=== PATIENT | female | born 1980 | race Caucasian/White ===

== ENCOUNTER 2016-09-20 07:40 | Outpatient (CLI) | payer MEDICAID ==
[2016-09-20 13:49] LABS: EOSINOPHILS # (AUTO) 0.1 10^3/uL (0.0-0.7); HGB - HEMOGLOBIN 12.3 g/dL (12.0-16.0); MEAN CORPUSCULAR HGB CONC 33.8 g/dL (32.0-36.0); MEAN CORPUSCULAR VOLUME 84.8 fL (81.0-99.0); MEAN PLATELET VOLUME 7.5 fL (7.9-10.8); MONOCYTES # (AUTO) 0.4 10^3/uL (0.0-1.0)
[2016-09-20 13:52] LABS: BASOPHILS % (AUTO) 0.8 %; EOSINOPHILS % (AUTO) 1.9 %; HCT - HEMATOCRIT 36.3 % (37.0-47.0); LYMPHOCYTES # (AUTO) 1.9 10^3/uL (1.5-3.5); MEAN CORPUSCULAR HEMOGLOBIN 28.7 pg (27.0-31.0); MONOCYTES % (AUTO) 6.4 %; NEUTROPHILS # (AUTO) 3.7 10^3/uL (1.5-6.6); NEUTROPHILS % (AUTO) 59.9 %; NUCLEATED RED BLOOD CELLS AUTO 0.1 /100WBC; RED BLOOD COUNT 4.28 10^6/uL (4.20-5.40); RED CELL DISTRIBUTION WIDTH 14.4 % (12.0-15.0); UNCORRECTED WHITE BLOOD COUNT 6.2 x10^3/uL; WHITE BLOOD COUNT 6.2 x10^3/uL (4.8-10.8)
[2016-09-20 14:14] LABS: ALBUMIN/GLOBULIN RATIO 1.3 (1.0-2.2); BILIRUBIN,TOTAL 0.5 mg/dL (0.2-1.0); BUN - BLOOD UREA NITROGEN 12 mg/dL (6-20); CARBON DIOXIDE - CO2 25 mmol/L (21-32); CHLORIDE 105 mmol/L (101-111); CREATININE 0.6 mg/dL (0.4-1.0); GFR - MDRD 112 (>89); GLUCOSE 95 mg/dL (70-100); MAGNESIUM 2.2 mg/dL (1.7-2.8); PHOSPHORUS 3.5 mg/dL (2.5-4.6); POTASSIUM 4.3 mmol/L (3.5-5.0); SODIUM 139 mmol/L (135-145); TOTAL PROTEIN 6.9 g/dL (6.7-8.2)
[2016-09-20 14:28] LABS: FERRITIN 14.8 ng/mL (11.0-306.8)
[2016-09-20 14:29] LABS: PROLACTIN 9.77 ng/mL
[2016-09-20 14:41] LABS: THYROID STIMULATING HORMONE 3.37 uIU/mL (0.34-5.60)
[2016-09-20 14:49] LABS: FOLLICLE STIMULATING HORMONE 4.94 mIU/mL
[2016-09-20 14:50] LABS: LUTEINIZING HORMONE 1.78 mIU/mL
== END 2016-09-20 07:41 | disposition home or self-care (01) ==
LOC: LAB.WCP 07:40
PROVIDERS: ATTEND Physician Assistant Medical
DX: N92.0 Excessive and frequent menstruation with regular cycle (principal)
CPT/HCPCS: 36415; 80053; 82607; 82728; 83001; 83002; 83735; 84100; 84146; 84443; 84702; 85025

== ENCOUNTER 2016-10-01 13:04 | Outpatient (CLI) | payer MEDICAID ==
--- NOTE | 2016-10-01 23:48 | Ultrasound Report ---
EXAM: PELVIC WITH TRANSVAGINAL ULTRASOUND EXAM DATE: 10/01/2016 02:14 PM. CLINICAL HISTORY: MENORRHAGIA. COMPARISON: None. TECHNIQUE: Realtime transabdominal pelvic scan performed to identify the uterus and adnexa and as an overview of other pelvic structures, followed by transvaginal scan to provide greater detail of the u terus and adnexa, with static image documentation. There is limited penetration due to large body hab itus which limits visualization. FINDINGS: Uterus: 10 x 4.9 x 6.8 cm, volume 175 cc. Anteverted position. Normal overall size and echotexture. Masses: None. Endometrium: 7 mm. Normal. Cervix: Unremarkable. Right Ovary: 3.6 x 2.2 x 2.7 cm, volume 10.7 cc. Normal echotexture and blood flow. Left Ovary: Not visualized. Free Fluid: None. Other: Limited visualization. See above. IMPRESSION: No abnormalities are seen. See above. [facility] Referring Provider Line: [phone] SITE ID: [id number]
== END 2016-10-01 13:05 | disposition home or self-care (01) ==
LOC: DI 13:04
PROVIDERS: ATTEND Physician Assistant Medical
DX: N92.0 Excessive and frequent menstruation with regular cycle (principal)
CPT/HCPCS: 76830; 76856

== ENCOUNTER 2017-01-02 08:36 | Outpatient (CLI) | payer MEDICAID ==
[2017-01-02 13:29] LABS: BILIRUBIN,URINE NEGATIVE (NEGATIVE)
[2017-01-02 13:37] LABS: UR CULTURE IF IND NOT INDICATED
== END 2017-01-02 08:37 | disposition home or self-care (01) ==
LOC: LAB.WCP 08:36
PROVIDERS: ATTEND Family Medicine
DX: R35.0 Frequency of micturition (principal)
CPT/HCPCS: 81001; 87086

== ENCOUNTER 2018-07-19 20:43 | Emergency (ER) | payer MEDICAID ==
[2018-07-19 21:12] LABS: BILIRUBIN,URINE NEGATIVE (NEGATIVE); GLUCOSE, URINE (UA) NEGATIVE (NEGATIVE); KETONES,URINE (UA) NEGATIVE (NEGATIVE); LEUKOCYTE ESTERASE, URINE TRACE (NEGATIVE); NITRITE,URINE NEGATIVE (NEGATIVE); OCCULT BLOOD,URINE MODERATE (NEGATIVE); PH,URINE 8.5 PH (5.0-7.5); PROTEIN,URINE NEGATIVE (NEGATIVE); UROBILINOGEN,URINE 0.2 (NORMAL) E.U./dL (NORMAL)
[2018-07-19 21:15] LABS: CLARITY,URINE CLEAR (CLEAR); HCG UR QUAL NEGATIVE
[2018-07-19 21:24] LABS: BACTERIA,URINE Rare /HPF (None Seen); SQUAMOUS EPITHELIAL CELL,UR RARE Squamous (<= Few)
--- NOTE | 2018-07-19 21:50 | ED Physician Documentation ---
PD HPI ABD PAIN - Stated complaint Stated Complaint: HERNANDEZ/FEVER/ABD PX - Chief complaint Chief Complaint: Abd Pain - History obtained from History obtained from: Patient - History of Present Illness Timing - onset: Today Timing - duration: Days (1) Timing - details: Gradual onset (Onset this morning of lower abdominal pain that is persisted to the day associated with some nausea at times. However she is feeling hungry now. She had a couple of loose stool movements but no diarrhea per se. She has not been constipated. The pain is crampy to aching in the lower abdomen midline and right.) Quality: Cramping, Aching Location: RLQ, Suprapubic Radiation: No: Lower back, Left flank, Right flank Improved by: Laying still. No: Eating Worsened by: Palpation. No: Eating, Breathing Associated symptoms: Nausea. No: Fever, Vomiting, Diarrhea, Dysuria Similar symptoms before: Has not had sx before Recently seen: Not recently seen Review of Systems Constitutional: denies: Fever Nose: denies: Rhinorrhea / runny nose, Congestion Throat: denies: Sore throat Respiratory: denies: Cough GI: reports: Abdominal Pain, Nausea. denies: Abdominal Swelling, Vomiting, Constipation, Diarrhea : denies: Dysuria, Frequency, Discharge Neurologic: reports: Generalized weakness. denies: Focal weakness, Numbness, Near syncope, Headache PD PAST MEDICAL HISTORY - Past Medical History Past Medical History: Yes Endocrine/Autoimmune: None GI: None ANIMAL HUSBANDMAN: Ovarian cysts - Past Surgical History Past Surgical History: No - Present Medications Home Medications: Ambulatory Orders Medication Instructions Recorded Confirmed Amox/Clav 875/125 [Augmentin] 1 each PO Q12H #14 tablet 07/20/18 Naproxen 500 mg PO BID #20 tablet 07/20/18 Ondansetron Odt [Zofran] 4 mg TL Q6H PRN #10 tablet 07/20/18 Tramadol HCl 50 mg PO Q6H PRN #15 tablet 07/20/18 - Allergies Allergies/Adverse Reactions: Allergies Allergy/AdvReac Type Severity Reaction Status Date / Time egg AdvReac Intermediate Cramps Verified 07/19/18 20:50 - Social History Does the pt smoke?: No Smoking Status: Never smoker Does the pt drink ETOH?: No Does the pt have substance abuse?: No - Immunizations Immunizations are current?: Yes PD ED PE NORMAL - Vitals Vital signs reviewed: Yes - General General: Alert and oriented X 3, Well developed/nourished - HEENT HEENT: Pharynx benign - Neck Neck: Supple, no meningeal sign, No adenopathy - Cardiac Cardiac: RRR, No murmur - Respiratory Respiratory: Clear bilaterally - Abdomen Abdomen: Soft, No organomegaly, Other (obese, With tenderness in the lower abdomen both midline and right lower quadrant. There is some localized tender ness to deeper palpation. There is no percussion or rebound tenderness. The upper abdomen is nontender.) - Female Female : Deferred - Rectal Rectal: Deferred - Back Back: No CVA TTP - Derm Derm: Normal color, Warm and dry - Extremities Extremities: No tenderness to palpate, Normal ROM s pain, No edema - Neuro Neuro: Alert and oriented X 3, No motor deficit, Normal speech Results - Vitals Vitals: Vital Signs - 24 hr 07/19/18 07/20/18 07/20/18 20:45 00:12 01:43 Temperature 37.8 C H 37.3 C 36.9 C Heart Rate 99 74 81 Respiratory 17 22 18 Rate Blood Pressure 149/91 H 107/65 129/86 H O2 Saturation 97 96 95 Oxygen O2 Source Room air - Labs Labs: Laboratory Tests 07/19/18 07/19/18 07/19/18 20:59 21:53 21:53 WBC 7.9 RBC 4.40 Hgb 13.7 Hct 39.1 MCV 88.9 MCH 31.1 H MCHC 35.0 RDW 12.9 Plt Count 186 MPV 7.4 L Neut # (Auto) 6.3 Lymph # (Auto) 1.1 L [place] # (Auto) 0.4 Eos # (Auto) 0.0 Baso # (Auto) 0.0 Absolute Nucleated RBC 0.00 Nucleated RBC % 0.0 Sodium 138 Potassium 3.8 Chloride 104 Carbon Dioxide 24 Anion Gap 10.0 BUN 9 Creatinine 0.6 Estimated GFR (MDRD) 111 Glucose 94 Calcium 8.8 Total Bilirubin 1.1 H AST 41 ALT 61 H Alkaline Phosphatase 53 Total Protein 7.1 Albumin 3.8 Globulin 3.3 Albumin/Globulin Ratio 1.2 Lipase 25 Urine Color YELLOW Urine Clarity CLEAR Urine pH 8.5 H Ur Specific [place] 1.015 Urine Protein NEGATIVE Urine Glucose (UA) NEGATIVE Urine Ketones NEGATIVE Urine Occult Blood MODERATE H Urine Nitrite NEGATIVE Urine Bilirubin NEGATIVE Urine Urobilinogen 0.2 (NORMAL) Ur Leukocyte Esterase TRACE H Urine RBC 6-10 H Urine WBC 4-5 Ur Squamous Epith Cells RARE Squamous Urine Bacteria Rare Ur Microscopic Review INDICATED Urine Culture Comments INDICATED Urine HCG, Qual NEGATIVE - Rads (name of study) Abdominal and pelvic CT without IV contrast. Radiology: Prelim report reviewed (The appendix is normal. There are no kidney stones. There is some inflammation along the sigmoid area with diverticula suggested diverticulitis.) PD MEDICAL DECISION MAKING - ED course Complexity details: considered differential (Consider appendicitis or urinary tract infection or diverticulitis given the local pain and tenderness in the lower abdomen.), d/w patient Departure - Departure Disposition: 01 Home, Self Care Clinical Impression: Diverticulitis Abdominal pain Qualifiers: Abdominal location: right lower quadrant Qualified Code(s): R10.31 - Right lower quadrant pain Condition: Stable Record reviewed to determine appropriate education?: Yes Instructions: ED Diverticulitis Follow-Up: Holden Moss MD [Primary Care Provider] - Prescriptions: Amox/Clav 875/125 [Augmentin] 1 each PO Q12H #14 tablet Naproxen 500 mg PO BID #20 tablet Ondansetron Odt [Zofran] 4 mg TL Q6H PRN #10 tablet PRN Reason: Nausea / Vomiting Tramadol HCl 50 mg PO Q6H PRN #15 tablet PRN Reason: Pain Comments: Stay well-hydrated. He is anti-inflammatory such as naproxen twice daily for the next 7 to 10 days. Augmentin antibiotic twice daily as directed for the diverticulitis infection. Ondansetron if needed for nausea. Add Tylenol or tramadol if needed for pain. Recheck if not improved over the next 2 to 3 days and return sooner if worsening. Discharge Date/Time: 07/20/18 01:45
[2018-07-19 22:01] LABS: BASOPHILS % (AUTO) 0.6 %; EOSINOPHILS % (AUTO) 0.3 %; HGB - HEMOGLOBIN 13.7 g/dL (12.0-16.0); LYMPHOCYTES # (AUTO) 1.1 10^3/uL (1.5-3.5); LYMPHOCYTES % (AUTO) 13.8 %; MEAN CORPUSCULAR HEMOGLOBIN 31.1 pg (27.0-31.0); MEAN CORPUSCULAR VOLUME 88.9 fL (81.0-99.0); MEAN PLATELET VOLUME 7.4 fL (7.9-10.8); MONOCYTES # (AUTO) 0.4 10^3/uL (0.0-1.0); MONOCYTES % (AUTO) 5.4 %; NEUTROPHILS # (AUTO) 6.3 10^3/uL (1.5-6.6); NEUTROPHILS % (AUTO) 79.9 %; PLT - PLATELET COUNT 186 10^3/uL (130-450); RED CELL DISTRIBUTION WIDTH 12.9 % (12.0-15.0); WHITE BLOOD COUNT 7.9 x10^3/uL (4.8-10.8)
[2018-07-19] MEDS ORDERED: SODIUM CHLORIDE 0.9% 1,000 ML IV ONE (22:11)
[2018-07-19] MEDS ORDERED: KETOROLAC 30 MG/ML VIAL IVP STA (22:11)
[2018-07-19] MEDS ORDERED: MORPHINE 10 MG/ML VIAL IVP STA (22:11)
[2018-07-19 22:12] LABS: ALBUMIN 3.8 g/dL (3.2-5.5); ALBUMIN/GLOBULIN RATIO 1.2 (1.0-2.2); BILIRUBIN,TOTAL 1.1 mg/dL (0.2-1.0); CALCIUM 8.8 mg/dL (8.5-10.3); CREATININE 0.6 mg/dL (0.4-1.0); TOTAL PROTEIN 7.1 g/dL (6.7-8.2)
--- NOTE | 2018-07-20 00:32 | CT Report ---
Reason: abrupt RLQ pain this morning Procedure Date: 07/19/2018 Accession Number: [id number] / [id number] Procedure: CT - Abdomen/Pelvis WO CPT Code: FULL RESULT: EXAM: CT ABDOMEN AND PELVIS (CT KUB) EXAM DATE: 07/19/2018 11:50 PM. CLINICAL HISTORY: Abrupt RLQ pain this morning. COMPARISONS: None. TECHNIQUE: Routine axial helical CT imaging was performed through the abdomen and pelvis without IV contrast. Reconstructions: Coronal and sagittal. In accordance with CT protocol optimization, one or more of the following dose reduction techniques were utilized for this exam: automated exposure control, adjustment of mA and/or KV based on patient size, or use of iterative reconstructive technique. FINDINGS: Lung Bases: Unremarkable. Right Kidney/Ureter: No stones, hydronephrosis, or hydroureter. No perinephric fat stranding. Left Kidney/Ureter: No stones, hydronephrosis, or hydroureter. No perinephric fat stranding. Other Solid Organs: Noncontrast images of the solid organs are grossly unremarkable. Gallbladder/Bile Ducts: Cholelithiasis. No evident biliary dilatation. Peritoneal Cavity: Mild inflammation around the sigmoid colon, with multiple diverticula present, compatible with uncomplicated diverticulitis. Normal appendix. Pelvic Organs: No bladder stones or wall thickening. Noncontrast images of the visualized pelvic organs are unremarkable. Vasculature: Unremarkable. Other: None. IMPRESSION: Inflammation around the sigmoid colon, with multiple diverticula present, compatible with uncomplicated diverticulitis. Normal appendix. No evidence of nephrolithiasis or hydronephrosis. Cholelithiasis. [facility]
[2018-07-20] MEDS ORDERED: cefTRIAXone 1 GM VIAL IVP STA (01:03)
[2018-07-20] MEDS ORDERED: DEXAMETHASONE 10 MG/ML VIAL IVP STA (01:03)
[2018-07-20] MEDS ORDERED: KETOROLAC 15 MG/ML VIAL IVP STA (01:22)
[2018-07-20 01:44] VITALS: BP 129/86
== END 2018-07-20 01:45 | disposition home or self-care (01) ==
LOC: ED 20:43
DX: K57.32 Diverticulitis of large intestine without perforation or abscess without bleeding (principal)
CPT/HCPCS: 36415; 74176; 80053; 81001; 81003; 81025; 83690; 85025; 87086; 96361; 96374; 96375; 96376; 99283; 99284

== ENCOUNTER 2019-02-10 10:35 | Emergency (ER) | payer MEDICAID ==
[2019-02-10 11:51] LABS: BILIRUBIN,URINE NEGATIVE (NEGATIVE); GLUCOSE, URINE (UA) NEGATIVE (NEGATIVE); KETONES,URINE (UA) NEGATIVE (NEGATIVE); LEUKOCYTE ESTERASE, URINE TRACE (NEGATIVE); NITRITE,URINE NEGATIVE (NEGATIVE); OCCULT BLOOD,URINE LARGE (NEGATIVE); PH,URINE 5.5 PH (5.0-7.5); PROTEIN,URINE NEGATIVE (NEGATIVE); UROBILINOGEN,URINE 0.2 (NORMAL) E.U./dL (NORMAL)
[2019-02-10 11:54] LABS: CLARITY,URINE SL. CLOUDY (CLEAR)
[2019-02-10 12:16] LABS: BACTERIA,URINE Rare /HPF (None Seen); SQUAMOUS EPITHELIAL CELL,UR RARE Squamous (<= Few)
--- NOTE | 2019-02-10 12:27 | ED Physician Documentation ---
PD HPI FEMALE - Stated complaint Stated Complaint: FEMALE ABD PX - Chief complaint Chief Complaint: Abd Pain - History obtained from History obtained from: Patient - History of Present Illness Timing - onset: Today Timing - duration: Minutes Timing - details: Abrupt onset Pain level max: 10 Associated symptoms: Abdominal pain, Vaginal bleeding. No: Fever, Back pain, Dysuria, Hematuria Contributing factors: No: control Recently seen: Not recently seen - Additional information Additional information: This is a 39-year-old woman who presents with her mother complaints that she woke up around 7 AM and slid off the bed on her stomach because she is on her menstrual cycle and tends to bleed heavy she did not want to get blood on the bed. She is walking to the bathroom she had an excruciating pain with sudden onset in her lower abdomen. She could not tell if it was on one side or the other but now it seems to be mostly on her side. She got to the bathroom and urinated and then went and laid down on the couch and said the pain was so severe for 4 minutes she just laid there moaning. 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 She did not take any medications for it. She does have a history of significant cramping with her menses and passing clots. She is currently on her menstrual cycle and said that the bleeding is may be moderate. She is been diagnosed with polycystic ovarian syndrome but has had a ultrasound that did not confirm the presence of ovarian cysts. She just never had cramping this severely with her menstrual cycle in the past. She did not feel dizzy. She was a little bit nauseous but had no vomiting or diarrhea. She denies fever but has been very chilled this morning. No history of dysuria. She cannot tell if there is blood in the urine because she is having so much vaginal bleeding. She does not have a history of kidney stones and is never had any prior abdominal surgeries. Patient was seen here in the emergency department in July 2018 and diagnosed with diverticulitis that was treated with antibiotics. She also has a history of cardiac palpitations and has worn a 24-hour Holter monitor but was not given any official diagnosis of an arrhythmia. She denies any recent cough stuffy nose or sore throat. She does have a sore inside of her nostril currently. She relates that to the fact that the dry ear is so dry recently with when her setting in. The patient is a professional nanny. Review of Systems Constitutional: reports: Chills. denies: Fever Ears: denies: Ear pain Nose: denies: Congestion Throat: denies: Sore throat Cardiac: reports: Palpitations Respiratory: denies: Dyspnea, Cough GI: reports: Abdominal Pain, Nausea. denies: Vomiting, Diarrhea : reports: Irregular menses, Missed period. denies: Dysuria, Control Skin: denies: Rash Musculoskeletal: denies: Neck pain, Back pain Neurologic: denies: Generalized weakness, Focal weakness, Near syncope, Syncope PD PAST MEDICAL HISTORY - Past Medical History Endocrine/Autoimmune: None GI: None HIGH SCHOOL MUSIC DIRECTOR: Ovarian cysts - Past Surgical History Past Surgical History: No - Present Medications Home Medications: Ambulatory Orders Medication Instructions Recorded Confirmed Ferrous Gluconate [Iron] 240 mg PO 02/10/19 02/10/19 - Allergies Allergies/Adverse Reactions: Allergies Allergy/AdvReac Type Severity Reaction Status Date / Time egg AdvReac Intermediate Cramps Verified 02/10/19 10:44 - Social History Does the pt smoke?: No Smoking Status: Never smoker Does the pt drink ETOH?: No Does the pt have substance abuse?: No - Immunizations Immunizations are current?: Yes PD ED PE NORMAL - Vitals Vital signs reviewed: Yes - General General: Alert and oriented X 3, No acute distress, Well developed/nourished, Other (Pleasant, obese 39-year-old woman in no acute distress.) - HEENT HEENT: Atraumatic, PERRL, Moist mucous membranes, Pharynx benign - Neck Neck: Supple, no meningeal sign, No adenopathy, Thyroid normal - Cardiac Cardiac: RRR, No murmur, Strong equal pulses - Respiratory Respiratory: No respiratory distress, Clear bilaterally - Abdomen Abdomen: Normal bowel sounds, Soft, Non tender, Non distended, Other (The exam is limited by the body habitus.) - Derm Derm: Normal color, Warm and dry, No rash - Neuro Neuro: Alert and oriented X 3, 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, No motor deficit, No sensory deficit, Normal speech - Psych Psych: Normal mood, Normal affect Results - Vitals Vitals: Vital Signs - 24 hr 02/10/19 02/10/19 02/10/19 10:42 13:06 15:48 Temperature 37.5 C 37.8 C H 37.0 C Heart Rate 112 H 110 H 99 Respiratory 22 17 17 Rate Blood Pressure 146/70 H 144/93 H 140/93 H O2 Saturation 100 99 100 Oxygen O2 Source Room air - Labs Labs: Laboratory Tests 02/10/19 02/10/19 02/10/19 11:20 12:52 12:52 WBC 13.1 H RBC 4.89 Hgb 15.0 Hct 43.7 MCV 89.4 MCH 30.7 MCHC 34.3 RDW 12.7 Plt Count 194 MPV 9.5 Neut # (Auto) 11.5 H Lymph # (Auto) 0.8 L [place] # (Auto) 0.7 Eos # (Auto) 0.0 Baso # (Auto) 0.1 Absolute Nucleated RBC 0.00 Nucleated RBC % 0.0 Sodium 135 Potassium 3.9 Chloride 103 Carbon Dioxide 23 Anion Gap 9.0 BUN 12 Creatinine 0.6 Estimated GFR (MDRD) 111 Glucose 121 H Calcium 8.8 Total Bilirubin 0.9 AST 27 ALT 34 Alkaline Phosphatase 47 Total Protein 7.5 Albumin 4.3 Globulin 3.2 Albumin/Globulin Ratio 1.3 Lipase 45 Urine Color YELLOW Urine Clarity SL. CLOUDY Urine pH 5.5 Ur Specific [place] 1.020 Urine Protein NEGATIVE Urine Glucose (UA) NEGATIVE Urine Ketones NEGATIVE Urine Occult Blood LARGE H Urine Nitrite NEGATIVE Urine Bilirubin NEGATIVE Urine Urobilinogen 0.2 (NORMAL) Ur Leukocyte Esterase TRACE H Urine RBC 11-25 H Urine WBC 0-3 Ur Squamous Epith Cells RARE Squamous Urine Bacteria Rare Ur Microscopic Review INDICATED Urine Culture Comments INDICATED Urine HCG, Qual 02/10/19 02/10/19 13:40 13:40 WBC RBC Hgb Hct MCV MCH MCHC RDW Plt Count MPV Neut # (Auto) Lymph # (Auto) [place] # (Auto) Eos # (Auto) Baso # (Auto) Absolute Nucleated RBC Nucleated RBC % Sodium Potassium Chloride Carbon Dioxide Anion Gap BUN Creatinine Estimated GFR (MDRD) Glucose Calcium Total Bilirubin AST ALT Alkaline Phosphatase Total Protein Albumin Globulin Albumin/Globulin Ratio Lipase Urine Color YELLOW Urine Clarity HAZY Urine pH 5.5 Ur Specific [place] 1.025 1.025 Urine Protein NEGATIVE Urine Glucose (UA) NEGATIVE Urine Ketones NEGATIVE Urine Occult Blood LARGE H Urine Nitrite NEGATIVE Urine Bilirubin NEGATIVE Urine Urobilinogen 0.2 (NORMAL) Ur Leukocyte Esterase NEGATIVE Urine RBC TNTC H Urine WBC 4-5 Ur Squamous Epith Cells FEW Squamous Urine Bacteria Rare Ur Microscopic Review INDICATED Urine Culture Comments NOT INDICATED Urine HCG, Qual NEGATIVE - Rads (name of study) CT abd/pelvis Radiology: See rad report (R adnexal mass, prob ovarian cyst. No kidney stone or appendicitis) U/S pelvis Radiology: See rad report (R ovarian cyst w/o torsion) PD MEDICAL DECISION MAKING - ED course Complexity details: reviewed results, d/w patient, d/w family ED course: Patient's urinalysis did have some blood in it but there is positive leukocytes and greater than 10 white blood cells per high-power field. Labs are still pending. Nursing staff told me that her temp was up to 100.1. The patient had declined anything for pain at this time. She is given a liter of fluids. 1615: The patient's white blood cell count was mildly elevated at 13,000. Her repeat urine had too numerous to count red blood cells but only a couple of white blood cells per high-power field. BUN and creatinine are normal. I did order a CT abdomen pelvis to rule out kidney stone. No evidence of kidney stone on the CT but there was noted to be an adnexal mass which is presumably an ovarian cyst. Given the abrupt onset of her pain and the severity of it with this large mass I have ordered an ultrasound to rule out ovarian torsion. She continues to decline anything for pain. Departure - Departure Disposition: 01 Home, Self Care Clinical Impression: Pelvic pain Cyst of ovary Qualifiers: Laterality: right Qualified Code(s): N83.201 - Unspecified ovarian cyst, right side Condition: Good Instructions: ED Pelvic Pain [facility] Follow-Up: Holden Moss DO [Primary Care Provider] - Comments: They did do a culture on the urine so someone will contact you and start you on antibiotics if it grows out any bacteria. Take Tylenol or ibuprofen if needed for the pain. Make sure you are drinking plenty of water. Follow-up with your primary care provider if you have persistent discomfort or return to the emergency department if the pain increases and becomes severe again and is not letting up with Tylenol and ibuprofen, you have a fever or are vomiting and cannot keep anything down.
[2019-02-10 13:04] LABS: BASOPHILS # (AUTO) 0.1 10^3/uL (0.0-0.1); BASOPHILS % (AUTO) 0.5 %; EOSINOPHILS % (AUTO) 0.2 %; LYMPHOCYTES # (AUTO) 0.8 10^3/uL (1.5-3.5); LYMPHOCYTES % (AUTO) 5.9 %; MEAN CORPUSCULAR HEMOGLOBIN 30.7 pg (27.0-31.0); MEAN CORPUSCULAR HGB CONC 34.3 g/dL (32.0-36.0); MEAN CORPUSCULAR VOLUME 89.4 fL (81.0-99.0); MEAN PLATELET VOLUME 9.5 fL (7.9-10.8); MONOCYTES # (AUTO) 0.7 10^3/uL (0.0-1.0); MONOCYTES % (AUTO) 5.1 %; NEUTROPHILS # (AUTO) 11.5 10^3/uL (1.5-6.6); NEUTROPHILS % (AUTO) 87.8 %; PLT - PLATELET COUNT 194 10^3/uL (130-450); RED BLOOD COUNT 4.89 10^6/uL (4.20-5.40); RED CELL DISTRIBUTION WIDTH 12.7 % (12.0-15.0); WHITE BLOOD COUNT 13.1 x10^3/uL (4.8-10.8)
[2019-02-10] MEDS ORDERED: SODIUM CHLORIDE 0.9% 1,000 ML IV ONE (13:05)
[2019-02-10 13:20] LABS: ALBUMIN 4.3 g/dL (3.2-5.5); ALBUMIN/GLOBULIN RATIO 1.3 (1.0-2.2); BILIRUBIN,TOTAL 0.9 mg/dL (0.2-1.0); CALCIUM 8.8 mg/dL (8.5-10.3); CREATININE 0.6 mg/dL (0.4-1.0); TOTAL PROTEIN 7.5 g/dL (6.7-8.2)
[2019-02-10 13:55] LABS: BILIRUBIN,URINE NEGATIVE (NEGATIVE); GLUCOSE, URINE (UA) NEGATIVE (NEGATIVE); KETONES,URINE (UA) NEGATIVE (NEGATIVE); LEUKOCYTE ESTERASE, URINE NEGATIVE (NEGATIVE); NITRITE,URINE NEGATIVE (NEGATIVE); OCCULT BLOOD,URINE LARGE (NEGATIVE); PH,URINE 5.5 PH (5.0-7.5); PROTEIN,URINE NEGATIVE (NEGATIVE); UROBILINOGEN,URINE 0.2 (NORMAL) E.U./dL (NORMAL)
[2019-02-10 14:01] LABS: BACTERIA,URINE Rare /HPF (None Seen); CLARITY,URINE HAZY (CLEAR); RBC,URINE TNTC /HPF (0-5); SQUAMOUS EPITHELIAL CELL,UR FEW Squamous (<= Few)
[2019-02-10 14:02] LABS: HCG UR QUAL NEGATIVE
--- NOTE | 2019-02-10 15:39 | CT Report ---
Reason: abdominal pain; hematuria Procedure Date: 02/10/2019 Accession Number: [id number] / [id number] Procedure: CT - Abdomen/Pelvis WO CPT Code: Final Report FULL RESULT: EXAM: CT ABDOMEN AND PELVIS (CT KUB) EXAM DATE: 02/10/2019 03:11 PM. CLINICAL HISTORY: Abdominal pain; hematuria. COMPARISONS: ABDOMEN/PELVIS W/O 07/19/2018 11:41 PM. TECHNIQUE: Routine axial helical CT imaging was performed through the abdomen and pelvis without IV contrast. Reconstructions: Coronal and sagittal. In accordance with CT protocol optimization, one or more of the following dose reduction techniques were utilized for this exam: automated exposure control, adjustment of mA and/or KV based on patient size, or use of iterative reconstructive technique. FINDINGS: Lung Bases: Unremarkable. Right Kidney/Ureter: No stones, hydronephrosis, or hydroureter. No perinephric fat stranding. Left Kidney/Ureter: No stones, hydronephrosis, or hydroureter. No perinephric fat stranding. Other Solid Organs: Noncontrast images of the solid organs are grossly unremarkable. Gallbladder/Bile Ducts: Calcified gallstone noted Peritoneal Cavity: No free fluid, free air or josie adenopathy. Bowel is grossly unremarkable. Normal appendix noted. Pelvic Organs: 4.4 cm hypodense -isodense lesion in the right adnexa with attenuation of 60 HU. Differentials include a hemorrhagic cyst versus endometrioma. Further evaluation is recommended on pelvic ultrasound. No bladder stones or wall thickening. Noncontrast images of the visualized pelvic organs are unremarkable. Vasculature: Unremarkable. Other: None. IMPRESSION: No urinary tract stones or obstruction. A calcified gallstone noted/cholelithiasis. A 4.4 cm hypo-isodense lesion in the right adnexa with attenuation of 60 HU. Differentials include hemorrhagic cyst versus endometrioma. [facility]
--- NOTE | 2019-02-10 17:39 | Ultrasound Report ---
Reason: Pain RLQ Procedure Date: 02/10/2019 Accession Number: [id number] / [id number] Procedure: US - Pelvic w/Transvag+Doppler Comp CPT Code: Final Report FULL RESULT: EXAM: PELVIC ULTRASOUND WITH DOPPLERS CLINICAL HISTORY: Pain RLQ. COMPARISON: 10/06/2016 TECHNIQUE: Realtime transabdominal imaging performed to identify the uterus and adnexa and as an overview of other pelvic structures, followed by transvaginal imaging for better assessment of the endometrium and adnexa, with static image documentation. Color flow imaging and Doppler spectral analysis was performed to evaluate blood flow to the ovaries given pelvic pain and clinical concern for ovarian torsion. FINDINGS: Uterus: 8.8 x 5.2 x 5.9 cm, volume 141.2 cc. Anteverted position. Normal overall size and echotexture. Masses: None. Endometrium: 5 mm. No focal endometrial abnormalities. Cervix: Unremarkable. Right Ovary: 6.5 x 4.9 x 5.4 cm, volume 89.7 cc. Normal echotexture. Arterial and venous blood flow are present. PSV 6.4 cm/sec. RI 0.7. 4.5 x 2.9 x 4.6 cm simple appearing cyst without septations or internal complexity. Adnexa are unremarkable. Left Ovary: 2.0 x 1.9 x 1.5 cm, volume 3 cc. Normal echotexture. Arterial and venous blood flow are present. PSV 2.9 cm/sec. RI 0.5. Adnexa are unremarkable. Free Fluid: None. Other: None. IMPRESSION: No acute sonographic abnormality. No evidence for ovarian torsion. 4.6 cm right ovarian cyst. [facility]
[2019-02-10] MEDS ORDERED: KETOROLAC 30 MG/ML VIAL IVP STA (17:49)
[2019-02-10 18:08] VITALS: BP 145/72
== END 2019-02-10 18:04 | disposition home or self-care (01) ==
LOC: ED 10:35
DX: R10.2 Pelvic and perineal pain (principal); N83.201 Unspecified ovarian cyst, right side; N92.6 Irregular menstruation, unspecified
CPT/HCPCS: 36415; 74176; 76830; 76856; 80053; 81001; 81003; 81025; 83690; 85025; 87086; 93975; 96361; 96374; 99284

== ENCOUNTER 2019-03-22 15:17 | Outpatient (CLI) | payer MEDICAID ==
--- NOTE | 2019-03-22 23:16 | Ultrasound Report ---
Reason: OVARIAN CYST RT SIDE Procedure Date: 03/22/2019 Accession Number: [id number] / [id number] Procedure: US - Pelvic w/Transvaginal CPT Code: Final Report FULL RESULT: EXAM: PELVIC ULTRASOUND EXAM DATE: 03/22/2019 05:12 PM. CLINICAL HISTORY: OVARIAN CYST RT SIDE. COMPARISON: PELVIC W/TRANSVAGINAL 10/01/2016 1:06 PM PEL NON OB W/TV DOP 02/10/2019 4:38 PM. TECHNIQUE: Realtime transabdominal pelvic scan performed to identify the uterus and adnexa and as an overview of other pelvic structures, followed by transvaginal scan to provide greater detail of the uterus and adnexa, with static image documentation. FINDINGS: Uterus: 8.7 x 4.5 x 5.4 cm, volume 110 cc. Anteverted position. Normal overall size and echotexture. Masses: None. Endometrium: 7 mm. Normal. Cervix: Nabothian cysts. Right Ovary: 3 x 2.1 x 3 cm, volume 9.8 cc. Normal echotexture and blood flow. Simple right ovarian cyst measuring 0.9 x 0.9 x 1.1 cm. Left Ovary: 2.3 x 1.3 x 1.4 cm, volume 2.2 cc. Normal echotexture and blood flow. Free Fluid: None. Other: None. IMPRESSION: 1. No acute finding sonographically including no evidence of ovarian torsion. 2. Simple right ovarian cyst measuring 0.9 x 0.9 x 1.1 cm. Previously visualized right ovarian cyst on 02/10/2019 measured 4.5 x 2.9 x 4.6 cm. [facility]
== END 2019-03-22 15:18 | disposition home or self-care (01) ==
LOC: DI 15:17
PROVIDERS: ATTEND Obstetrics & Gynecology
DX: N83.291 Other ovarian cyst, right side (principal)
CPT/HCPCS: 76830; 76856

== ENCOUNTER 2019-03-28 09:46 | Outpatient (CLI) | payer MEDICAID ==
[2019-03-28 10:58] LABS: ALBUMIN 4.1 g/dL (3.2-5.5); ALBUMIN/GLOBULIN RATIO 1.2 (1.0-2.2); ALKALINE PHOSPHATASE 42 IU/L (42-121); ALT ALANINE AMINOTRANSFERASE 39 IU/L (10-60); AST ASPARTATE AMINOTRANSFERASE 25 IU/L (10-42); BILIRUBIN,TOTAL 0.8 mg/dL (0.2-1.0); BUN - BLOOD UREA NITROGEN 12 mg/dL (6-20); CARBON DIOXIDE - CO2 26 mmol/L (21-32); CHLORIDE 105 mmol/L (101-111); CHOLESTEROL 224 mg/dL; CREATININE 0.7 mg/dL (0.4-1.0); GFR - MDRD 93 (>89); GLUCOSE 94 mg/dL (70-100); HDL CHOLESTEROL 45 mg/dL; LDL CHOLESTEROL,CALCULATED 147 mg/dL; LDL/HDL RATIO 3.3 (<4.4); SODIUM 141 mmol/L (135-145); TOTAL PROTEIN 7.4 g/dL (6.7-8.2); VLDL CHOLESTEROL 32 mg/dL
[2019-03-28 11:37] LABS: PROLACTIN 5.7 ng/mL
[2019-03-29 10:39] LABS: ESTRADIOL 40 pg/mL
[2019-04-01 15:34] LABS: DHEA SULFATE 84 mcg/dL (23-266)
== END 2019-03-28 09:47 | disposition home or self-care (01) ==
LOC: LAB 09:46
PROVIDERS: ATTEND Obstetrics & Gynecology
DX: Z00.00 Encounter for general adult medical examination without abnormal findings (principal); Z13.220 Encounter for screening for lipoid disorders; N92.6 Irregular menstruation, unspecified; E28.2 Polycystic ovarian syndrome; Z13.1 Encounter for screening for diabetes mellitus
CPT/HCPCS: 36415; 80053; 80061; 81599; 82627; 82670; 82951; 83498; 83721; 84146; 84403; 84443

== ENCOUNTER 2020-01-04 12:14 | Outpatient (CLI) | payer MEDICAID ==
[2020-01-04 13:05] LABS: THYROID STIMULATING HORMONE 2.92 uIU/mL (0.34-5.60)
[2020-01-04 13:07] LABS: FREE T3 3.29 pg/mL (2.5-3.9); FREE T4 (FREE THYROXINE) 0.83 ng/dL (0.58-1.64)
== END 2020-01-04 12:15 | disposition home or self-care (01) ==
LOC: LAB 12:14
PROVIDERS: ATTEND Obstetrics & Gynecology
DX: E28.2 Polycystic ovarian syndrome (principal); N92.6 Irregular menstruation, unspecified; E07.9 Disorder of thyroid, unspecified
CPT/HCPCS: 36415; 84439; 84443; 84481

== ENCOUNTER 2020-06-28 11:52 | Emergency (ER) | payer MEDICAID ==
--- OUTSIDE RECORDS SUMMARY | 2020-06-28 12:24 | EXTERNAL MEDICAL SUMMARY RPT | Continuity of Care Document ---
:1980 Demographics Phone Unavailable Preferred Language Unknown Marital Status Unknown Latter-Day Affiliation Unknown Race Unknown Ethnic Group Unknown Author Organization [facility] Address [address] [phone] Phone Social History date description facility [id number]
[2020-06-28 12:28] LABS: BASOPHILS % (AUTO) 0.5 %; EOSINOPHILS # (AUTO) 0.1 10^3/uL (0.0-0.7); EOSINOPHILS % (AUTO) 1.7 %; HCT - HEMATOCRIT 40.8 % (37.0-47.0); LYMPHOCYTES # (AUTO) 1.6 10^3/uL (1.5-3.5); LYMPHOCYTES % (AUTO) 26.4 %; MEAN CORPUSCULAR HEMOGLOBIN 31.3 pg (27.0-31.0); MEAN CORPUSCULAR HGB CONC 34.3 g/dL (32.0-36.0); MEAN CORPUSCULAR VOLUME 91.1 fL (81.0-99.0); MEAN PLATELET VOLUME 9.1 fL (7.9-10.8); MONOCYTES # (AUTO) 0.3 10^3/uL (0.0-1.0); MONOCYTES % (AUTO) 5.8 %; NEUTROPHILS # (AUTO) 3.8 10^3/uL (1.5-6.6); NEUTROPHILS % (AUTO) 65.1 %; PLT - PLATELET COUNT 212 10^3/uL (130-450); RED BLOOD COUNT 4.48 10^6/uL (4.20-5.40); RED CELL DISTRIBUTION WIDTH 12.6 % (12.0-15.0); WHITE BLOOD COUNT 5.9 x10^3/uL (4.8-10.8)
[2020-06-28 12:41] LABS: BILIRUBIN,URINE NEGATIVE (NEGATIVE); GLUCOSE, URINE (UA) NEGATIVE (NEGATIVE); KETONES,URINE (UA) NEGATIVE (NEGATIVE); LEUKOCYTE ESTERASE, URINE TRACE (NEGATIVE); NITRITE,URINE NEGATIVE (NEGATIVE); OCCULT BLOOD,URINE MODERATE (NEGATIVE); PH,URINE 5.5 PH (5.0-7.5); PROTEIN,URINE NEGATIVE (NEGATIVE); UROBILINOGEN,URINE 0.2 (NORMAL) E.U./dL (NORMAL)
[2020-06-28 12:44] LABS: CLARITY,URINE SL. CLOUDY (CLEAR)
[2020-06-28 12:45] LABS: HCG UR QUAL NEGATIVE
[2020-06-28 12:45] LABS: ALBUMIN/GLOBULIN RATIO 1.3 (1.0-2.2); BILIRUBIN,TOTAL 0.4 mg/dL (0.2-1.0); CALCIUM 9.3 mg/dL (8.5-10.3); CREATININE 0.6 mg/dL (0.4-1.0); POTASSIUM 4.2 mmol/L (3.5-5.0); TOTAL PROTEIN 7.2 g/dL (6.7-8.2)
[2020-06-28 13:07] LABS: BACTERIA,URINE Rare /HPF (None Seen); EPITHELIAL CELLS,UR None Seen /HPF (<= Few); RBC,URINE 0-5 /HPF (0-5); SQUAMOUS EPITHELIAL CELL,UR NONE SEEN (<= Few)
[2020-06-28] MEDS ORDERED: KETOROLAC 60 MG/2 ML VIAL IM STA (13:16)
--- NOTE | 2020-06-28 13:16 | ED Physician Documentation ---
PD HPI ABD PAIN - Stated complaint Stated Complaint: ABDOMINAL PX - Chief complaint Chief Complaint: Abd Pain - History obtained from History obtained from: Patient - Additional information Additional information: 40-year-old woman with history of PCOS, no history of abdominal surgeries. 2 days ago developed pelvic pain similar to prior ovarian cyst, that pain has subsided but now she has epigastric pain that is not associated with eating. She does note 2 days of urinary frequency with this as well. She denies fevers, chills, nausea, vomiting, change in bowel movements. Review of Systems Constitutional: reports: Reviewed and negative Ears: reports: Reviewed and negative Nose: reports: Reviewed and negative Throat: reports: Reviewed and negative Cardiac: reports: Reviewed and negative PD PAST MEDICAL HISTORY - Past Medical History Past Medical History: No Endocrine/Autoimmune: None GI: None BILINGUAL RECRUITER: Ovarian cysts - Past Surgical History Past Surgical History: No - Present Medications Home Medications: Ambulatory Orders Medication Instructions Recorded Confirmed Nitrofurantoin Monohyd/M-Cryst 100 mg PO BID #10 cap 06/28/20 [Macrobid 100 mg Capsule] - Allergies Allergies/Adverse Reactions: Allergies Allergy/AdvReac Type Severity Reaction Status Date / Time egg AdvReac Intermediate Cramps Verified 06/28/20 12:03 - Social History Does the pt smoke?: No Smoking Status: Never smoker Does the pt drink ETOH?: No Does the pt have substance abuse?: No - Immunizations Immunizations are current?: Yes PD ED PE NORMAL - Vitals Vital signs reviewed: Yes - General General: Alert and oriented X 3, No acute distress - Cardiac Cardiac: RRR, No murmur - Respiratory Respiratory: No respiratory distress, Clear bilaterally - Abdomen Abdomen: Normal bowel sounds, Soft, Other (Mild tenderness in the epigastrium and right upper quadrant. No lower abdominal or pelvic tenderness.) - Back Back: No CVA TTP, No spinal TTP - Derm Derm: Normal color, Warm and dry - Neuro Neuro: Alert and oriented X 3, Normal speech Results - Vitals Vitals: Vital Signs - 24 hr 06/28/20 06/28/20 12:04 14:30 Temperature 36.7 C Heart Rate 76 58 L Respiratory 18 18 Rate Blood Pressure 144/85 H 149/83 H O2 Saturation 100 100 Oxygen O2 Source Room air - Labs Labs: Laboratory Tests 06/28/20 06/28/20 06/28/20 12:15 12:22 12:22 WBC 5.9 RBC 4.48 Hgb 14.0 Hct 40.8 MCV 91.1 MCH 31.3 H MCHC 34.3 RDW 12.6 Plt Count 212 MPV 9.1 Neut # (Auto) 3.8 Lymph # (Auto) 1.6 [place] # (Auto) 0.3 Eos # (Auto) 0.1 Baso # (Auto) 0.0 Absolute Nucleated RBC 0.00 Nucleated RBC % 0.0 Sodium 143 Potassium 4.2 Chloride 105 Carbon Dioxide 29 Anion Gap 9.0 BUN 11 Creatinine 0.6 Estimated GFR (MDRD) 110 Glucose 119 H Calcium 9.3 Total Bilirubin 0.4 AST 26 ALT 43 Alkaline Phosphatase 44 Total Protein 7.2 Albumin 4.0 Globulin 3.2 Albumin/Globulin Ratio 1.3 Lipase 30 Urine Color YELLOW Urine Clarity SL. CLOUDY Urine pH 5.5 Ur Specific Mittie 1.020 Urine Protein NEGATIVE Urine Glucose (UA) NEGATIVE Urine Ketones NEGATIVE Urine Occult Blood MODERATE H Urine Nitrite NEGATIVE Urine Bilirubin NEGATIVE Urine Urobilinogen 0.2 (NORMAL) Ur Leukocyte Esterase TRACE H Urine RBC 0-5 Urine WBC 4-5 Ur Epithelial Cells None Seen Ur Squamous Epith Cells NONE SEEN Urine Bacteria Rare Ur Microscopic Review INDICATED Urine Culture Comments INDICATED Urine HCG, Qual NEGATIVE PD MEDICAL DECISION MAKING - ED course ED course: 40-year-old woman with pelvic pain, now epigastric pain, some tenderness in the right upper quadrant and has a known history of gallstones from prior imaging. Ultrasound today shows cholelithiasis, no evidence of cholecystitis. She was feeling better after Toradol but did not have any change in her symptoms with GI cocktail. She does have leukocyte esterase and bacteriuria in the setting of frequency and this is treated with Macrobid. Departure - Departure Disposition: Home, Self Care Clinical Impression: Cystitis Abdominal pain Qualifiers: Abdominal location: epigastric Qualified Code(s): R10.13 - Epigastric pain Condition: Good Record reviewed to determine appropriate education?: Yes Instructions: ED Gallstone W Biliary Colic Follow-Up: Ramone Cain MD [Provider Admit Priv/Credential] - Prescriptions: Nitrofurantoin Monohyd/M-Cryst [Macrobid 100 mg Capsule] 100 mg PO BID #10 cap Comments: Currently the gallstone measures about 2.9 x 2.9 cm. This is not significantly changed from the CT you had in February 2019. You should follow-up with a surgeon for further evaluation and treatment. Call the number on this form. Return for new or worsening symptoms.
[2020-06-28 14:31] VITALS: BP 149/83
[2020-06-28] MEDS ORDERED: LIDOCAINE VISCOUS 2% 15 ML UDC MM STA (14:34)
[2020-06-28] MEDS ORDERED: MAG HYDROX/AL HYDROX/SIMETH 30 ML UDC PO STA (14:34)
--- NOTE | 2020-06-28 14:46 | Ultrasound Report ---
PROCEDURE: Abdomen Limited INDICATIONS: RUQ/epigastric pain TECHNIQUE: Real-time focused scanning was performed of the abdomen, with image documentation. COMPARISON: CT abdomen pelvis dated 02/10/2019 FINDINGS: The liver is enlarged measuring 22.4 cm in length. There is diffuse echogenicity. No focal abnormalit y. No intrahepatic ductal dilation. The gallbladder demonstrates a single large stone measuring 2.9 x 2.9 cm. The rest of the gallbladder is limited in evaluation given shadowing from stones. Wall thickness is within normal limits measuri ng 2 mm. No pericholecystic fluid. Common bile duct is within normal limits measuring 3 mm. Limited evaluation of the proximal pancreas given adjacent bowel gas. The right kidney is normal in size and echogenicity without evidence of hydronephrosis, suspicious ma ss, or calcifications. IMPRESSION: Cholelithiasis without current evidence for cholecystitis. Hepatomegaly with diffuse increase in echogenicity most commonly seen with hepatic steatosis. Reviewed by: Hang Rice DO on 06/28/2020 1:45 PM [facility] Approved by: Hang Rice DO on 06/28/2020 1:45 PM [facility] Station ID: [id number]
== END 2020-06-28 15:00 | disposition home or self-care (01) ==
LOC: ED 11:52
DX: N30.90 Cystitis, unspecified without hematuria (principal); E28.2 Polycystic ovarian syndrome
CPT/HCPCS: 36415; 76705; 80053; 81001; 81025; 83690; 85025; 87086; 87181; 96372; 99284; A9270; 81003

== ENCOUNTER 2020-07-16 08:00 | Outpatient (CLI) | payer MEDICAID ==
[2020-07-16 19:37] LABS: BILIRUBIN,URINE NEGATIVE (NEGATIVE); GLUCOSE, URINE (UA) NEGATIVE (NEGATIVE); KETONES,URINE (UA) NEGATIVE (NEGATIVE); LEUKOCYTE ESTERASE, URINE NEGATIVE (NEGATIVE); NITRITE,URINE NEGATIVE (NEGATIVE); OCCULT BLOOD,URINE NEGATIVE (NEGATIVE); PROTEIN,URINE NEGATIVE (NEGATIVE); UROBILINOGEN,URINE 0.2 (NORMAL) E.U./dL (NORMAL)
[2020-07-16 20:04] LABS: BACTERIA,URINE Rare /HPF (None Seen); CLARITY,URINE CLEAR (CLEAR); RBC,URINE None Seen /HPF (0-5); SQUAMOUS EPITHELIAL CELL,UR RARE Squamous (<= Few); WBC,URINE 0-3 /HPF (0-5)
== END 2020-07-16 23:59 | disposition home or self-care (01) ==
LOC: LAB.WCP 08:00
PROVIDERS: ATTEND Family Medicine
DX: N39.0 Urinary tract infection, site not specified (principal)
CPT/HCPCS: 81001; 87086

== ENCOUNTER 2021-02-10 09:03 | Outpatient (CLI) | payer MEDICAID ==
[2021-02-10 09:22] LABS: BILIRUBIN,URINE NEGATIVE (NEGATIVE); GLUCOSE, URINE (UA) NEGATIVE (NEGATIVE); KETONES,URINE (UA) NEGATIVE (NEGATIVE); LEUKOCYTE ESTERASE, URINE NEGATIVE (NEGATIVE); NITRITE,URINE NEGATIVE (NEGATIVE); OCCULT BLOOD,URINE NEGATIVE (NEGATIVE); PROTEIN,URINE NEGATIVE (NEGATIVE); UROBILINOGEN,URINE 0.2 (NORMAL) E.U./dL (NORMAL)
[2021-02-10 09:31] LABS: CLARITY,URINE CLEAR (CLEAR)
[2021-02-10 09:32] LABS: BACTERIA,URINE Moderate /HPF (None Seen); RBC,URINE 0-5 /HPF (0-5); SQUAMOUS EPITHELIAL CELL,UR MOD Squamous (<= Few); WBC,URINE 0-3 /HPF (0-5)
--- NOTE | 2021-02-10 10:54 | XRAY Report ---
PROCEDURE: Cervical Spine 2 View INDICATIONS: NECK PAIN TECHNIQUE: 3 view(s) of the cervical spine were acquired. COMPARISON: None. FINDINGS: Bones: No fractures or dislocations to the C7-T1 level. Mild straightening of normal cervical lordos is is seen. Mild degenerative endplate changes are noted at C6-7 level. The lateral masses of C1 appe ar intact on the odontoid view. No suspicious bony lesions. Soft tissues: No prevertebral soft tissue swelling. IMPRESSION: No cervical spine fracture or dislocation. Mild degenerative disc disease at C6-7 level. Reviewed by: Denny Loyola MD on 02/10/2021 10:52 AM [facility] Approved by: Denny Loyola MD on 02/10/2021 10:52 AM PST Station ID: [id number]
== END 2021-02-10 09:04 | disposition home or self-care (01) ==
LOC: LAB 09:03 → DI 09:04
PROVIDERS: ATTEND Family Medicine
DX: M50.323 Other cervical disc degeneration at C6-C7 level (principal); N39.0 Urinary tract infection, site not specified
CPT/HCPCS: 81001; 87086

== ENCOUNTER 2021-02-17 09:34 | Outpatient (CLI) | payer OTHER, MEDICAID ==
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
== END 2021-02-17 09:35 | disposition home or self-care (01) ==
LOC: DI 09:34
PROVIDERS: ATTEND Chiropractor
DX: M99.02 Segmental and somatic dysfunction of thoracic region (principal); S29.012A Strain of muscle and tendon of back wall of thorax, initial encounter; M51.34 Other intervertebral disc degeneration, thoracic region

== ENCOUNTER 2021-04-05 15:19 | Outpatient (CLI) | payer MEDICAID ==
[2021-04-06 18:49] LABS: BASOPHILS % (AUTO) 0.6 %; EOSINOPHILS # (AUTO) 0.1 10^3/uL (0.0-0.7); HCT - HEMATOCRIT 42.2 % (37.0-47.0); HGB - HEMOGLOBIN 13.8 g/dL (12.0-16.0); LYMPHOCYTES # (AUTO) 1.8 10^3/uL (1.5-3.5); LYMPHOCYTES % (AUTO) 26.4 %; MEAN CORPUSCULAR HEMOGLOBIN 30.1 pg (27.0-31.0); MEAN CORPUSCULAR HGB CONC 32.7 g/dL (32.0-36.0); MEAN CORPUSCULAR VOLUME 92.1 fL (81.0-99.0); MEAN PLATELET VOLUME 9.9 fL (7.9-10.8); MONOCYTES # (AUTO) 0.5 10^3/uL (0.0-1.0); MONOCYTES % (AUTO) 6.9 %; NEUTROPHILS # (AUTO) 4.2 10^3/uL (1.5-6.6); NEUTROPHILS % (AUTO) 63.8 %; PLT - PLATELET COUNT 230 10^3/uL (130-450); RED BLOOD COUNT 4.58 10^6/uL (4.20-5.40); RED CELL DISTRIBUTION WIDTH 12.2 % (12.0-15.0); WHITE BLOOD COUNT 6.6 x10^3/uL (4.8-10.8)
[2021-04-06 19:49] LABS: THYROID STIMULATING HORMONE 2.16 uIU/mL (0.34-5.60)
[2021-04-06 19:50] LABS: ALBUMIN 4.1 g/dL (3.2-5.5); ALBUMIN/GLOBULIN RATIO 1.5 (1.0-2.2); ALKALINE PHOSPHATASE 37 IU/L (42-121); ALT ALANINE AMINOTRANSFERASE 31 IU/L (10-60); AST ASPARTATE AMINOTRANSFERASE 24 IU/L (10-42); BILIRUBIN,TOTAL 0.5 mg/dL (0.2-1.0); BUN - BLOOD UREA NITROGEN 13 mg/dL (6-20); CARBON DIOXIDE - CO2 28 mmol/L (21-32); CHLORIDE 103 mmol/L (101-111); CREATININE 0.7 mg/dL (0.4-1.0); GFR - MDRD 92 (>89); GLUCOSE 105 mg/dL (70-100); POTASSIUM 3.9 mmol/L (3.5-5.0); SODIUM 140 mmol/L (135-145); TOTAL PROTEIN 6.9 g/dL (6.7-8.2)
[2021-04-06 21:15] LABS: CRP - C-REACTIVE PROTEIN < 1.0 mg/dL (0-1.0)
[2021-04-09 19:31] LABS: THYROID PEROXIDASE ANTIBODIES <1 IU/mL (<9)
== END 2021-04-05 23:59 | disposition home or self-care (01) ==
LOC: LAB.WCP 15:19
PROVIDERS: ATTEND Family Medicine
DX: E04.1 Nontoxic single thyroid nodule (principal)
CPT/HCPCS: 36415; 80053; 81599; 84443; 85025; 85651; 86140; 86376; 86800

== ENCOUNTER 2021-05-14 10:28 | Outpatient (CLI) | payer MEDICAID ==
--- NOTE | 2021-05-14 19:21 | Ultrasound Report ---
PROCEDURE: Head or Neck Soft Tissue INDICATIONS: THYROID NODULE TECHNIQUE: Real-time scanning was performed of the thyroid gland, with image documentation. COMPARISON: None FINDINGS: Right: Thyroid lobe measures 6.2 x 1.6 x 1.7 cm, and is homogeneous in echotexture. Left: Thyroid lobe measures 6.1 x 1.5 x 1.8 cm, and is homogenous in echotexture. Isthmus: 6 mm thick. Nodule number: One Location: Right mid posterior Size: 0.4 x 0.3 cm. Composition: Solid Echogenicity: Hyperechoic Shape: Wider than tall. Margins: Smooth Echogenic foci: Microcalcifications Total points: 4 ACR TI-RADS category: 4 Nodule number: Two Location: Left mid Size: 1.2 x 0.5 x 0.7 cm. Composition: Solid Echogenicity: Hypoechoic Shape: Wider than tall Margins: Ill-defined Echogenic foci: None Total points: 4 ACR TI-RADS category: 4 IMPRESSION: TI-RADS category 4 bilateral thyroid nodules. Best practice guidelines follow-up schedule is as qamar ws is. ACR TI-RADS definitions and recommendations: TI-RADS 1 (benign): 0 points. FNA not needed. TI-RADS 2 (not suspicious): 2 points. FNA not needed. TI-RADS 3 (mildly suspicious): 3 points. "FNA if 2.5 cm or larger, follow up if 1.5 cm or larger (at 1, 3, and 5 years). TI-RADS 4 (moderately suspicious): 4-6 points. "FNA if 1.5 cm or larger, follow up if 1 cm or larger (at 1, 2, 3, and 5 years). TI-RADS 5 (highly suspicious): 7 points or more. "FNA if 1 cm or larger, follow up if 0.5 cm or larger (every year for 5 years). Reviewed by: Ilia Bunch MD on 05/14/2021 6:20 PM [facility] Approved by: Ilia Bunch MD on 05/14/2021 6:20 PM [facility] Station ID: [id number]
== END 2021-05-14 10:29 | disposition home or self-care (01) ==
LOC: DI 10:28
PROVIDERS: ATTEND Family Medicine
DX: E04.2 Nontoxic multinodular goiter (principal)

== ENCOUNTER 2021-12-06 10:39 | Outpatient (CLI) | payer MEDICAID | END 2021-12-06 10:40 | disposition home or self-care (01) | LOC: LAB.N 10:39 | PROVIDERS: ATTEND Optometrist | DX: Z53.9 Procedure and treatment not carried out, unspecified reason (principal) ==

== ENCOUNTER 2021-12-08 16:59 | Outpatient (CLI) | payer MEDICAID | END 2021-12-08 17:00 | disposition home or self-care (01) | LOC: LAB 16:59 | PROVIDERS: ATTEND Optometrist | DX: H20.9 Unspecified iridocyclitis (principal); H53.143 Visual discomfort, bilateral | CPT/HCPCS: 81599; 86480 ==

== ENCOUNTER 2022-07-03 16:38 | Outpatient (CLI) | payer MEDICAID | END 2022-07-03 16:39 | disposition short-term general hospital (02) | LOC: EMS 16:38 | DX: M79.652 Pain in left thigh (principal) | CPT/HCPCS: A0425; A0429; A0999 ==

== ENCOUNTER 2022-07-21 22:01 | Outpatient (CLI) | payer MEDICAID ==
--- NOTE | 2022-07-22 13:43 | Ultrasound Report ---
PROCEDURE: Head or Neck Soft Tissue INDICATIONS: THYROID NODULE TECHNIQUE: Real-time scanning was performed of the thyroid gland, with image documentation. COMPARISON: Thyroid ultrasound 06/14/2021 FINDINGS: Right: Thyroid lobe measures 5.6 x 1.4 x 2.0 cm, and is homogeneous in echotexture. Left: Thyroid lobe measures 5.7 x 1.4 x 2.1 cm, and is homogenous in echotexture. Isthmus: Size mm thick. Nodule number: One Location: Left lobe Size: 1.2 x 0.5 x 0.9 cm compared to 1.2 x 0.5 x 0.7 cm. cm. Composition: Solid. Echogenicity: Hypoechoic. Shape: wider than tall. Margins: Smooth (0 points). Echogenic foci: None (0 points). Total points: 4 ACR TI-RADS category: 4. IMPRESSION: Stable category 4 thyroid nodule. Secondary to size, recommend follow-up imaging at 1, 2, 3 and 5 yea rs from initial visualization. Previous right thyroid masses not visualized. ACR TI-RADS definitions and recommendations: TI-RADS 1 (benign): 0 points. FNA not needed. TI-RADS 2 (not suspicious): 2 points. FNA not needed. TI-RADS 3 (mildly suspicious): 3 points. "FNA if 2.5 cm or larger, follow up if 1.5 cm or larger (at 1, 3, and 5 years). TI-RADS 4 (moderately suspicious): 4-6 points. "FNA if 1.5 cm or larger, follow up if 1 cm or larger (at 1, 2, 3, and 5 years). TI-RADS 5 (highly suspicious): 7 points or more. "FNA if 1 cm or larger, follow up if 0.5 cm or larger (every year for 5 years). Reviewed by: Sandy Olivarez MD on 07/22/2022 1:41 PM PDT Approved by: Sandy Olivarez MD on 07/22/2022 1:41 PM PDT Station ID: [id number]
== END 2022-07-21 22:02 | disposition home or self-care (01) ==
LOC: DI 22:01
PROVIDERS: ATTEND Physician Assistant
DX: E04.1 Nontoxic single thyroid nodule (principal)

== ENCOUNTER 2022-10-11 08:00 | Outpatient (CLI) | payer MEDICAID ==
--- NOTE | 2022-10-11 15:19 | XRAY Report ---
PROCEDURE: Finger(s) LT INDICATIONS: LEFT THUMB CYST TECHNIQUE: AP hand, 2 views of the thumb acquired. COMPARISON: None. FINDINGS: Bones: No fractures or dislocations. No suspicious bony lesions. Scattered degenerative changes p resent for example at the interphalangeal joints. Soft tissues: No suspicious soft tissue calcifications. Soft tissues are not well evaluated by radio graphy. IMPRESSION: No acute bony abnormality. If pain persists with conservative management, consider repeat radiographs in 10-14 days or cross-sectional imaging. Reviewed by: Usman Villarreal MD on 10/11/2022 3:17 PM PDT Approved by: Usman Villarreal MD on 10/11/2022 3:17 PM PDT Station ID: [id number]
== END 2022-10-11 23:59 | disposition home or self-care (01) ==
LOC: DI.WOS 08:00
PROVIDERS: ATTEND Orthopaedic Surgery
DX: M67.442 Ganglion, left hand (principal)

== ENCOUNTER 2022-10-17 14:52 | Outpatient (CLI) | payer MEDICAID | END 2022-10-17 14:53 | disposition home or self-care (01) | LOC: CAM 14:52 | PROVIDERS: ATTEND Physician Assistant | DX: M54.32 Sciatica, left side (principal); M54.16 Radiculopathy, lumbar region | CPT/HCPCS: 97813; 97814 ==

== ENCOUNTER 2022-10-31 14:38 | Outpatient (CLI) | payer MEDICAID | END 2022-10-31 14:39 | disposition home or self-care (01) | LOC: CAM 14:38 | PROVIDERS: ATTEND Physician Assistant | DX: M54.32 Sciatica, left side (principal); M54.16 Radiculopathy, lumbar region | CPT/HCPCS: 97810; 97811 ==

== ENCOUNTER 2022-11-07 13:12 | Outpatient (CLI) | payer MEDICAID | END 2022-11-07 13:13 | disposition home or self-care (01) | LOC: CAM 13:12 | PROVIDERS: ATTEND Physician Assistant | DX: M54.42 Lumbago with sciatica, left side (principal); M54.16 Radiculopathy, lumbar region | CPT/HCPCS: 97813; 97814 ==

== ENCOUNTER 2022-12-12 14:19 | Outpatient (CLI) | payer MEDICAID | END 2022-12-12 14:20 | disposition home or self-care (01) | LOC: CAM 14:19 | PROVIDERS: ATTEND Physician Assistant | DX: M54.32 Sciatica, left side (principal); M54.16 Radiculopathy, lumbar region | CPT/HCPCS: 97810; 97811 ==

== ENCOUNTER 2022-12-19 15:45 | Outpatient (CLI) | payer MEDICAID | END 2022-12-19 15:46 | disposition home or self-care (01) | LOC: CAM 15:45 | PROVIDERS: ATTEND Physician Assistant | DX: M54.32 Sciatica, left side (principal); M54.16 Radiculopathy, lumbar region | CPT/HCPCS: 97810; 97811 ==

== ENCOUNTER 2023-01-02 15:49 | Outpatient (CLI) | payer MEDICAID | END 2023-01-02 15:50 | disposition home or self-care (01) | LOC: CAM 15:49 | PROVIDERS: ATTEND Physician Assistant | DX: M54.32 Sciatica, left side (principal); M54.16 Radiculopathy, lumbar region | CPT/HCPCS: 97810; 97811 ==

== ENCOUNTER 2023-01-09 15:40 | Outpatient (CLI) | payer MEDICAID | END 2023-01-09 15:41 | disposition home or self-care (01) | LOC: CAM 15:40 | PROVIDERS: ATTEND Physician Assistant | DX: M54.32 Sciatica, left side (principal); M54.16 Radiculopathy, lumbar region | CPT/HCPCS: 97810; 97811 ==

== ENCOUNTER 2023-01-16 13:00 | Outpatient (CLI) | payer MEDICAID | END 2023-01-16 13:01 | disposition home or self-care (01) | LOC: CAM 13:00 | PROVIDERS: ATTEND Physician Assistant | DX: M54.32 Sciatica, left side (principal); M54.16 Radiculopathy, lumbar region | CPT/HCPCS: 97813; 97814 ==

== ENCOUNTER 2023-01-30 15:46 | Outpatient (CLI) | payer MEDICAID | END 2023-01-30 15:47 | disposition home or self-care (01) | LOC: CAM 15:46 | PROVIDERS: ATTEND Physician Assistant | DX: M54.32 Sciatica, left side (principal); M54.16 Radiculopathy, lumbar region | CPT/HCPCS: 97813; 97814 ==

== ENCOUNTER 2023-02-06 13:07 | Outpatient (CLI) | payer MEDICAID | END 2023-02-06 13:08 | disposition home or self-care (01) | LOC: CAM 13:07 | PROVIDERS: ATTEND Physician Assistant | DX: M54.32 Sciatica, left side (principal); M54.16 Radiculopathy, lumbar region | CPT/HCPCS: 97810; 97811 ==

== ENCOUNTER 2023-03-27 13:03 | Outpatient (CLI) | payer MEDICAID | END 2023-03-27 13:04 | disposition home or self-care (01) | LOC: CAM 13:03 | PROVIDERS: ATTEND Physician Assistant | DX: M54.16 Radiculopathy, lumbar region (principal); M54.32 Sciatica, left side | CPT/HCPCS: 97813; 97814 ==

== ENCOUNTER 2023-04-03 14:53 | Outpatient (CLI) | payer MEDICAID | END 2023-04-03 14:54 | disposition home or self-care (01) | LOC: CAM 14:53 | PROVIDERS: ATTEND Physician Assistant | DX: M54.32 Sciatica, left side (principal); M54.16 Radiculopathy, lumbar region | CPT/HCPCS: 97810; 97811 ==

== ENCOUNTER 2023-04-10 15:54 | Outpatient (CLI) | payer MEDICAID | END 2023-04-10 15:55 | disposition home or self-care (01) | LOC: CAM 15:54 | PROVIDERS: ATTEND Physician Assistant | DX: M54.32 Sciatica, left side (principal); M54.16 Radiculopathy, lumbar region | CPT/HCPCS: 97810; 97811 ==

== ENCOUNTER 2023-04-24 13:15 | Outpatient (CLI) | payer MEDICAID | END 2023-04-24 13:16 | disposition home or self-care (01) | LOC: CAM 13:15 | PROVIDERS: ATTEND Physician Assistant | DX: M54.16 Radiculopathy, lumbar region (principal); M54.32 Sciatica, left side | CPT/HCPCS: 97810; 97811 ==

== ENCOUNTER 2023-06-19 14:32 | Outpatient (CLI) | payer MEDICAID | END 2023-06-19 14:33 | disposition home or self-care (01) | LOC: CAM 14:32 | PROVIDERS: ATTEND Physician Assistant | DX: M54.32 Sciatica, left side (principal); M54.16 Radiculopathy, lumbar region | CPT/HCPCS: 97813; 97814 ==

== ENCOUNTER 2023-06-26 14:18 | Outpatient (CLI) | payer MEDICAID | END 2023-06-26 14:19 | disposition home or self-care (01) | LOC: CAM 14:18 | PROVIDERS: ATTEND Physician Assistant | DX: M54.32 Sciatica, left side (principal); M54.16 Radiculopathy, lumbar region | CPT/HCPCS: 97813; 97814 ==

== ENCOUNTER 2023-07-10 14:25 | Outpatient (CLI) | payer MEDICAID | END 2023-07-10 14:26 | disposition home or self-care (01) | LOC: CAM 14:25 | PROVIDERS: ATTEND Physician Assistant | DX: M54.32 Sciatica, left side (principal); M54.16 Radiculopathy, lumbar region | CPT/HCPCS: 97810; 97811 ==

== ENCOUNTER 2023-07-17 13:16 | Outpatient (CLI) | payer MEDICAID | END 2023-07-17 13:17 | disposition home or self-care (01) | LOC: CAM 13:16 | PROVIDERS: ATTEND Physician Assistant | DX: M54.32 Sciatica, left side (principal); M54.16 Radiculopathy, lumbar region | CPT/HCPCS: 97813; 97814 ==

== ENCOUNTER 2023-07-24 13:12 | Outpatient (CLI) | payer MEDICAID | END 2023-07-24 13:13 | disposition home or self-care (01) | LOC: CAM 13:12 | PROVIDERS: ATTEND Physician Assistant | DX: M54.32 Sciatica, left side (principal); M54.16 Radiculopathy, lumbar region | CPT/HCPCS: 97810; 97811 ==

== ENCOUNTER 2023-07-31 13:08 | Outpatient (CLI) | payer MEDICAID | END 2023-07-31 13:09 | disposition home or self-care (01) | LOC: CAM 13:08 | PROVIDERS: ATTEND Physician Assistant | DX: M54.32 Sciatica, left side (principal); M54.16 Radiculopathy, lumbar region | CPT/HCPCS: 97813; 97814 ==

== ENCOUNTER 2023-08-21 15:55 | Outpatient (CLI) | payer MEDICAID | END 2023-08-21 15:56 | disposition home or self-care (01) | LOC: CAM 15:55 | PROVIDERS: ATTEND Physician Assistant | DX: M54.16 Radiculopathy, lumbar region (principal); M54.32 Sciatica, left side | CPT/HCPCS: 97813; 97814 ==

== ENCOUNTER 2023-08-28 15:40 | Outpatient (CLI) | payer MEDICAID | END 2023-08-28 15:41 | disposition home or self-care (01) | LOC: CAM 15:40 | PROVIDERS: ATTEND Physician Assistant | DX: M54.32 Sciatica, left side (principal); M54.16 Radiculopathy, lumbar region | CPT/HCPCS: 97810; 97811 ==

== ENCOUNTER 2023-10-16 13:03 | Outpatient (CLI) | payer MEDICAID | END 2023-10-16 13:04 | disposition home or self-care (01) | LOC: CAM 13:03 | PROVIDERS: ATTEND Physician Assistant | DX: M54.32 Sciatica, left side (principal); M54.16 Radiculopathy, lumbar region | CPT/HCPCS: 97813; 97814 ==

== ENCOUNTER 2023-10-23 13:07 | Outpatient (CLI) | payer MEDICAID | END 2023-10-23 13:08 | disposition home or self-care (01) | LOC: CAM 13:07 | PROVIDERS: ATTEND Physician Assistant | DX: M54.32 Sciatica, left side (principal); M54.16 Radiculopathy, lumbar region | CPT/HCPCS: 97813; 97814 ==

== ENCOUNTER 2023-11-20 15:39 | Outpatient (CLI) | payer MEDICAID | END 2023-11-20 15:40 | disposition home or self-care (01) | LOC: CAM 15:39 | PROVIDERS: ATTEND Physician Assistant | DX: M54.32 Sciatica, left side (principal); M54.16 Radiculopathy, lumbar region | CPT/HCPCS: 97813; 97814 ==

== ENCOUNTER 2023-11-27 14:26 | Outpatient (CLI) | payer MEDICAID | END 2023-11-27 14:27 | disposition home or self-care (01) | LOC: CAM 14:26 | PROVIDERS: ATTEND Physician Assistant | DX: M54.32 Sciatica, left side (principal); M54.16 Radiculopathy, lumbar region | CPT/HCPCS: 97810; 97811 ==

== ENCOUNTER 2023-12-04 15:43 | Outpatient (CLI) | payer MEDICAID | END 2023-12-04 15:44 | disposition home or self-care (01) | LOC: CAM 15:43 | PROVIDERS: ATTEND Physician Assistant | DX: M54.32 Sciatica, left side (principal); M54.16 Radiculopathy, lumbar region | CPT/HCPCS: 97813; 97814 ==